=== PATIENT | female | born 1965 | race Caucasian/White ===

== ENCOUNTER → 2016-04-27 | Emergency (ER) | payer SELFPAY ==
--- NOTE | 2016-04-27 15:47 | DIAGNOSTIC IMAGING REPORT ---
PROCEDURE: XR FOOT 3 VIEWS - RIGHT INDICATION: TRAUMA/INJURY TECHNIQUE: Three views. COMPARISON: None. 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 There is no fracture or dislocation. IMPRESSION: 1. Osteoarthritis first metatarsal phalangeal joint.
--- NOTE | 2016-04-27 15:49 | DIAGNOSTIC IMAGING REPORT ---
PROCEDURE: XR KNEE 4 VIEWS - LEFT INDICATION: TRAUMA/INJURY TECHNIQUE: Four views. COMPARISON: None. FINDINGS: Osseous structures and joint spaces are normal. IMPRESSION: 1. Normal left knee.
--- NOTE | 2016-04-27 15:50 | DIAGNOSTIC IMAGING REPORT ---
PROCEDURE: XR FOREARM - RIGHT INDICATION: TRAUMA/INJURY TECHNIQUE: AP and lateral views. COMPARISON: None. FINDINGS: Osseous structures are normal. IMPRESSION: 1. Normal right forearm.
--- NOTE | 2016-04-27 15:50 | DIAGNOSTIC IMAGING REPORT ---
PROCEDURE: XR FOREARM - RIGHT INDICATION: TRAUMA/INJURY TECHNIQUE: AP and lateral views. COMPARISON: None. FINDINGS: Osseous structures are normal. IMPRESSION: 1. Normal right forearm.
--- NOTE | 2016-04-27 15:54 | ED NURSING NOTES ---
Clinical Report - Nurses [facility] [address] [place] [address] 04/27/2016 14:28 Patient: DOMENIC HOGAN TRIAGE Triage time 14:42 Apr 27 2016. Acuity: LEVEL 4. Chief Complaint: FALL while walking. 14:54 04/27/16. Alert. No acute distress. SEPSIS SCREEN: Sepsis Screen. Negative (no infection suspected/documented). ROBERT COMA SCORE: [place] Coma Scale: 15- eyes open spontaneously (4); best verbal response- oriented x 4 (5); best motor response- obeys commands (6). --14:54 Lor Mina 14:54 04/27/16. BP: 127/61. HR: 76. RR: 16. O2 saturation: 100%. Temp: 97.8 F. Pain level now 10/10. --14:54 Lor Mina. Weight: 81.6 kg stated. Height/Length: 64 inches Per Patient. BMI: 30.9. --14:42 Lor Mina. Medications Levothyroxine Sodium Oral 25 mcg, daily (doesn't take anymore, "no money"). --14:49 Lor Mina. Medication/allergy information source: the patient. --14:54 Lor Mina. Allergies Penicillin. --14:49 Lor Mina. History Arrived by private vehicle. Historian: patient. Accompanied by friend. No primary care physician. Location of injuries: neck, head, right elbow, right foot and left knee. This occurred last night. Occurred at home. ( Pt reports that she tripped when walking the dog last night. Has generalized pain, but specifies her her, side of neck, right forearm, and left knee). She has had neck pain (on the left side), extremity pain and trouble walking. Limited ROM present. No loss of consciousness. No alteration in mental status or difficulty breathing. Treatment CLOTH COLORER: None. Trauma activation: Pre-hospital notification of patient arrival was not received. PAST MEDICAL HX: Immunizations: up-to-date. SOCIAL HX: Heavy tobacco smoker- 1 pack per day. No alcohol use or drug use. NUTRITIONAL RISK ASSESSMENT: The nutritional risk assessment revealed no deficiencies. FUNCTIONAL ASSESSMENT: Functional assessment: no impairments noted. LEARNING NEEDS ASSESSMENT: The learning needs assessment revealed no barriers. FALL RISK ASSESSMENT: Fall risk assessment completed. Risk factors identified include patient history of fall. Fall interventions initiated. Side rails up x1. SKIN INTEGRITY ASSESSMENT: Skin integrity risk assessment completed. No skin integrity risk identified. --14:54 Lor Mina. PROBLEMS: Myofascial Strain. Dental Caries. Cellulitis. Impacted Cerumen. Cervical Strain. Foot Fracture. Fibula Fracture. Tetanus Status. Otitis Media. Sinusitis. Headache. Back Pain. Deaf. Immunizations. LNMP - Last Normal Menstrual Period. Staph Infections. Sciatica. Hypothyroidism. --14:46 Lor Mina. ADDITIONAL SURGERIES: Hysterectomy. Left leg surgery 2011. Nose surgey. --14:46 Lor Mina. Assessment The patient states feels the same. --14:54 Lor Mina. Interventions ID band on patient. --14:54 Lor Mina. PHYSICAL ASSESSMENT 14:55 04/27/16. To room via wheelchair. Patient gowned. GENERAL / NEURO / PSYCH: Alert. Oriented X 4. Appears in pain. HEENT: Pupils equal, round and reactive to light. Head: tenderness present. Neck: tenderness (on the left side). Head: tenderness. RESPIRATORY: Respirations not labored. Chest nontender. CVS: Pulses within normal limits. Capillary refill less than 2 seconds. GI / : Abdomen soft and nontender. EXTREMITIES: Extremities exhibit normal ROM. Limping gait. Neuro-vascular status intact to the extremity. Right elbow: superficial abrasion. Left knee: swelling and superficial abrasion. SKIN: Skin intact. Skin is warm and dry. --14:55 Lor Mina. NURSING PROGRESS NOTES 14:55 04/27/16. The plan of care for this patient has been created. Extremity elevated. Neuro-vascular extremity check. Reassurance given. Two patient identifiers checked. Call light placed in reach. Side rails up x 1. Bed placed in lowest position. Brakes of bed on. Patient ready for evaluation- chart flagged and ED physician and TAG STRINGER notified. --14:55 Lor Mina 14:57 04/27/16. ( Warm blanket provided.). --15:09 Lor Mina 15:05 04/27/2016 Hydrocodone-APAP (Hydrocodone-Acetaminophen) PO 5/325 mg Tablets 1 tab given. Allergies verified, confirmed 5 rights and sedative warning given to the patient. --15:05 Lor Mina 15:04/27/16. Care transferred and report given (Nely, RN). --15:09 Lor Mina. DISPOSITION / DISCHARGE Departure time: 16:Apr 27 2016. Condition at departure: unchanged. Learning barriers note: deaf mute. Discharge instructions provided and reviewed and the patient left prior to discharge education being provided. Reviewed medication(s) side effects, precautions, dosing and course information. Prescription(s) given to the patient. Patient verbalized understanding. Written instructions provided in Nepali. Verbalized understanding (wrote on paper no questions). The patient was discharged home and accompanied by tawanna. She left the Emergency Department ambulatory and via private vehicle. Driving ([employer] FALL RISK ASSESSMENT: Fall risk assessment completed. No fall risk identified. --16:07 Nely Garcia R.N. 16:03 04/27/16. BP: 144/69. HR: 84. O2 saturation: 100%. Pain level now: 10/10. --16:07 Nely Garcia R.N. Locked/Released at 04/27/2016 16:58 by Nely Garcia R.N.
--- NOTE | 2016-04-27 15:54 | ED ORDER SUMMARY ---
..... Patient: DOMENIC HOGAN OrderSheet [facility] VisitID: [id number] [address] [place] [address] 51y, F Registration Date/Time: 04/27/2016 ORDER SHEET Weight: 81.6 kg (stated) Allergies: Penicillin GENERAL ORDERS: Forearm Right Urgent (14:56 04/27/2016 HBivens A.R.N.P.) (Ack 14:58 KHoerner) (15:29 KHoerner) Foot 3V Right Urgent (14:56 04/27/2016 HBivens A.R.N.P.) (Ack 14:58 KHoerner) (15:29 KHoerner) Knee 4V Left Urgent (14:56 04/27/2016 HBivens A.R.N.P.) (Ack 14:58 KHoerner) (15:29 KHoerner) MEDICATION ORDERS: Hydrocodone-APAP PO 5/325 mg (NOW, HIGH ALERT MEDICATION) (14:59 04/27/2016 HBivens A.R.N.P.) (15:05 ASchmuck) IV FLUIDS: ORDER SHEET NOTES: [Electronically signed by Nely Garcia R.N. (16:58 04/27/2016)] [Electronically signed by Linda Tate A.R.N.P. (17:12 04/27/2016)] [Electronically locked/signed by Nely Garcia R.N. (16:58 04/27/2016)]
--- NOTE | 2016-04-27 15:54 | ED NURSING NOTES ---
Clinical Report - Nurses [facility] [address] [place] [address] 04/27/2016 14:28 Patient: DOMENIC HOGAN TRIAGE Triage time 14:42 Apr 27 2016. Acuity: LEVEL 4. Chief Complaint: FALL while walking. 14:54 04/27/16. Alert. No acute distress. SEPSIS SCREEN: Sepsis Screen. Negative (no infection suspected/documented). ROBERT COMA SCORE: [place] Coma Scale: 15- eyes open spontaneously (4); best verbal response- oriented x 4 (5); best motor response- obeys commands (6). --14:54 Lor Mina 14:54 04/27/16. BP: 127/61. HR: 76. RR: 16. O2 saturation: 100%. Temp: 97.8 F. Pain level now 10/10. --14:54 Lor Mina. Weight: 81.6 kg stated. Height/Length: 64 inches Per Patient. BMI: 30.9. --14:42 Lor Mina. Medications Levothyroxine Sodium Oral 25 mcg, daily (doesn't take anymore, "no money"). --14:49 Lor Mina. Medication/allergy information source: the patient. --14:54 Lor Mina. Allergies Penicillin. --14:49 Lor Mina. History Arrived by private vehicle. Historian: patient. Accompanied by friend. No primary care physician. Location of injuries: neck, head, right elbow, right foot and left knee. This occurred last night. Occurred at home. ( Pt reports that she tripped when walking the dog last night. Has generalized pain, but specifies her her, side of neck, right forearm, and left knee). She has had neck pain (on the left side), extremity pain and trouble walking. Limited ROM present. No loss of consciousness. No alteration in mental status or difficulty breathing. Treatment LIME TRIMMER: None. Trauma activation: Pre-hospital notification of patient arrival was not received. PAST MEDICAL HX: Immunizations: up-to-date. SOCIAL HX: Heavy tobacco smoker- 1 pack per day. No alcohol use or drug use. NUTRITIONAL RISK ASSESSMENT: The nutritional risk assessment revealed no deficiencies. FUNCTIONAL ASSESSMENT: Functional assessment: no impairments noted. LEARNING NEEDS ASSESSMENT: The learning needs assessment revealed no barriers. FALL RISK ASSESSMENT: Fall risk assessment completed. Risk factors identified include patient history of fall. Fall interventions initiated. Side rails up x1. SKIN INTEGRITY ASSESSMENT: Skin integrity risk assessment completed. No skin integrity risk identified. --14:54 Lor Mina. PROBLEMS: Myofascial Strain. Dental Caries. Cellulitis. Impacted Cerumen. Cervical Strain. Foot Fracture. Fibula Fracture. Tetanus Status. Otitis Media. Sinusitis. Headache. Back Pain. Deaf. Immunizations. LNMP - Last Normal Menstrual Period. Staph Infections. Sciatica. Hypothyroidism. --14:46 Lor Mina. ADDITIONAL SURGERIES: Hysterectomy. Left leg surgery 2011. Nose surgey. --14:46 Lor Mina. Assessment The patient states feels the same. --14:54 Lor Mina. Interventions ID band on patient. --14:54 Lor Mina. PHYSICAL ASSESSMENT 14:55 04/27/16. To room via wheelchair. Patient gowned. GENERAL / NEURO / PSYCH: Alert. Oriented X 4. Appears in pain. HEENT: Pupils equal, round and reactive to light. Head: tenderness present. Neck: tenderness (on the left side). Head: tenderness. RESPIRATORY: Respirations not labored. Chest nontender. CVS: Pulses within normal limits. Capillary refill less than 2 seconds. GI / : Abdomen soft and nontender. EXTREMITIES: Extremities exhibit normal ROM. Limping gait. Neuro-vascular status intact to the extremity. Right elbow: superficial abrasion. Left knee: swelling and superficial abrasion. SKIN: Skin intact. Skin is warm and dry. --14:55 Lor Mina. NURSING PROGRESS NOTES 14:55 04/27/16. The plan of care for this patient has been created. Extremity elevated. Neuro-vascular extremity check. Reassurance given. Two patient identifiers checked. Call light placed in reach. Side rails up x 1. Bed placed in lowest position. Brakes of bed on. Patient ready for evaluation- chart flagged and ED physician and CLOTH GRADER notified. --14:55 Lor Mina 14:57 04/27/16. ( Warm blanket provided.). --15:09 Lor Mina 15:05 04/27/2016 Hydrocodone-APAP (Hydrocodone-Acetaminophen) PO 5/325 mg Tablets 1 tab given. Allergies verified, confirmed 5 rights and sedative warning given to the patient. --15:05 Lor Mina 15:04/27/16. Care transferred and report given (Nely, RN). --15:09 Lor Mina. DISPOSITION / DISCHARGE Departure time: 16:Apr 27 2016. Condition at departure: unchanged. Learning barriers note: deaf mute. Discharge instructions provided and reviewed and the patient left prior to discharge education being provided. Reviewed medication(s) side effects, precautions, dosing and course information. Prescription(s) given to the patient. Patient verbalized understanding. Written instructions provided in Croatian. Verbalized understanding (wrote on paper no questions). The patient was discharged home and accompanied by tawanna. She left the Emergency Department ambulatory and via private vehicle. Driving ([employer] FALL RISK ASSESSMENT: Fall risk assessment completed. No fall risk identified. --16:07 Nely Garcia R.N. 16:03 04/27/16. BP: 144/69. HR: 84. O2 saturation: 100%. Pain level now: 10/10. --16:07 Nely Garcia R.N. Locked/Released at 04/27/2016 16:58 by Nely Garcia R.N.
--- NOTE | 2016-04-27 15:54 | ED CLINICAL REPORT ---
Clinical Report - Physicians/Mid Levels [facility] [address] [place] [address] 04/27/2016 14:28 Patient: DOMENIC HOGAN Time Seen: 14:36; upon arrival, initial patient contact, initial documentation, patient care assumed. Arrived- By private vehicle. Historian- patient. HISTORY OF PRESENT ILLNESS Chief Complaint: FALL. Location of injuries- right forearm and right foot and left knee. The injury occurred last night. Fell while walking and landed on the ground; tripped (tripped while walking the dog). Occurred at home. The patient complains of severe pain. No blow to the head, loss of consciousness or seizure. The patient complains of neck pain. Not dazed. (hurts all over). REVIEW OF SYSTEMS The patient complains of pain on weight bearing. No numbness, chest pain, difficulty breathing, weakness or abdominal pain. No laceration. All systems otherwise negative, except as recorded above. PAST HISTORY See nurses notes. PROBLEMS: Myofascial Strain. Dental Caries. Cellulitis. Impacted Cerumen. Cervical Strain. Foot Fracture. Fibula Fracture. Tetanus Status. Otitis Media. Sinusitis. Headache. Back Pain. Deaf. Immunizations. LNMP - Last Normal Menstrual Period. Staph Infections. Sciatica. Hypothyroidism. --14:46 Lor Mina. ADDITIONAL SURGERIES: Hysterectomy. Left leg surgery 2011. Nose surgey. --14:46 Lor Mina. SOCIAL HISTORY Heavy tobacco smoker. No alcohol use or drug use. No recent travel. Is a local resident. FAMILY HISTORY No significant family medical history. ADDITIONAL NOTES The nursing notes have been reviewed with agreement regarding the chief complaint, HPI, ROS, PMH and patient medications and allergies. PHYSICAL EXAM Vital Signs: 04/27/2016 14:54 BP: 127/61. HR: 76. RR: 16. O2 saturation: 100%. Temp: 97.8 F. Have been reviewed as normal and appear to be correct. Appearance: Alert. Oriented X3. No acute distress. Head: Head non-tender. No swelling of head. Eyes: Pupils equal, round and reactive to light. EOM intact. ENT: No dental injury. Pharynx normal. Neck: Painless ROM. Non-tender. CVS: Heart sounds normal. Pulses normal. Respiratory: Breath sounds normal. Chest nontender. Abdomen: No visible injury. Soft and nontender. Back: No tenderness. ROM normal. Skin: Skin intact. Skin warm and dry. Normal skin color. Normal skin turgor. Extremities: Abnormal inspection. Extremities not atraumatic. Right forearm: moderate tenderness, mild swelling and small ecchymosis located in the proximal volar aspect of forearm. Neurovascular intact distally. No erythema, laceration, abrasion, puncture wound or foreign body. No deformity. Pelvis stable. Left knee: mild tenderness and swelling and small abrasion and ecchymosis located in the patella. Limited ROM secondary to pain (diminished flexion and external and internal rotation). Neurovascular intact distally. No ligamentous laxity present. No joint effusion. No erythema, laceration, puncture wound, foreign body or deformity. Right foot: mild tenderness located in the dorsal aspect of the mid foot. Limited weight bearing secondary to pain. Neurovascular intact distally. No erythema, swelling, laceration, abrasion or ecchymosis. No puncture wound, foreign body or deformity. No lower extremity edema. Neuro: Oriented X 3. No motor deficit. No sensory deficit. LABS, X-RAYS, AND EKG X-Rays: Right forearm negative. Left knee negative. Right foot negative. Rt Forearm X-ray: (IMPRESSION: 1. Normal right forearm. Electronically Final signed by:Royer Knapp MD 04/27/2016 3:54:24 PM). The X-rays were interpreted by the radiologist and contemporaneously by me. Interpretation time: 15:50. Rt Foot X-ray: (IMPRESSION: 1. Osteoarthritis first metatarsal phalangeal joint. Electronically Final signed by:Royer Knapp MD 04/27/2016 3:51:11 PM). The X-rays were interpreted by the radiologist and contemporaneously by me. Lt Knee X-ray: (IMPRESSION: 1. Normal left knee. Electronically Final signed by:Royer Knapp MD 04/27/2016 3:52:52 PM). The X-rays were interpreted by the radiologist and contemporaneously by me. Interpretation time: 15:50. PROGRESS AND PROCEDURES Patient counseled in person regarding the patient's stable condition, test results and diagnosis. 15:51. Differential Diagnosis: Other possible considerations: fall, fx, contusions, lacs, abrasions, sprains. Above considerations are based on history, physical exam and X-Ray data. Differential diagnosis was discussed with patient. Disposition: Discharged home in good and improved condition (15:53). Condition: good and stable. CLINICAL IMPRESSION Multiple contusions with abrasion to the right forearm and left knee.No hematoma. Myofascial pain syndrome Fall on same level by tripping. INSTRUCTIONS Warnings: GENERAL WARNINGS: Return or contact your physician immediately if your condition worsens or changes unexpectedly, if not improving as expected, or if other problems arise. SPECIFICALLY, return if you develop incontinence of feces (loss of bowel control) or urine (loss of bladder control). trouble breathing, chest pain. Prescription Medications: Flexeril 10 mg: Take 1 orally every 8 hours as needed for muscle spasm. Dispense twenty (20). No refills. Substitution is permissible. Ultram 50 mg tablets: take 1-2 orally every 6 hours as needed for pain. Dispense twenty (20). No refills. Substitution is permissible. Follow-up: Follow up with your doctor in about one week as needed. Call for an appointment. Summary of care provided to patient. Understanding of the discharge instructions verbalized by patient. (Electronically signed by Linda Tate A.R.N.P. 04/27/2016 17:12)
--- NOTE | 2016-04-27 15:54 | ED ORDER SUMMARY ---
..... Patient: DOMENIC HOGAN OrderSheet [facility] VisitID: [id number] [address] [place] [address] 51y, F Registration Date/Time: 04/27/2016 ORDER SHEET Weight: 81.6 kg (stated) Allergies: Penicillin GENERAL ORDERS: Forearm Right Urgent (14:56 04/27/2016 HBivens A.R.N.P.) (Ack 14:58 KHoerner) (15:29 KHoerner) Foot 3V Right Urgent (14:56 04/27/2016 HBivens A.R.N.P.) (Ack 14:58 KHoerner) (15:29 KHoerner) Knee 4V Left Urgent (14:56 04/27/2016 HBivens A.R.N.P.) (Ack 14:58 KHoerner) (15:29 KHoerner) MEDICATION ORDERS: Hydrocodone-APAP PO 5/325 mg (NOW, HIGH ALERT MEDICATION) (14:59 04/27/2016 HBivens A.R.N.P.) (15:05 ASchmuck) IV FLUIDS: ORDER SHEET NOTES: [Electronically signed by Nely Garcia R.N. (16:58 04/27/2016)] [Electronically signed by Linda Tate A.R.N.P. (17:12 04/27/2016)] [Electronically locked/signed by Nely Garcia R.N. (16:58 04/27/2016)]
--- NOTE | 2016-04-27 17:12 | ED MED RECONCILIATION SUMMARY ---
Patient: DOMENIC HOGAN Medication Reconciliation Report [facility] VisitID: [id number] [address] [place] [address] 51y, F Registration Date/Time: 04/27/2016 Weight: 81.6 kg Height/Length: 64 in. BMI: 30.9 ALLERGIES: Penicillin The patient's Home Medications are listed below: THE FOLLOWING MEDICATIONS NEED TO BE RECONCILED: Levothyroxine Sodium Oral 25 mcg, daily, doesn't take anymore, "no money" The source(s) of the original Home Medication information: patient The following Medications were given to the patient in the Emergency Department: Hydrocodone-APAP [PO] PO 1 tab, administered: 04/27/2016 3:05:00 PM The following Medications were prescribed to the patient: Flexeril 10 mg: Take 1 orally every 8 hours as needed for muscle spasm. Dispense twenty (20). No refills. Substitution is permissible. -- Linda Tate A.R.N.P. Ultram 50 mg tablets: take 1-2 orally every 6 hours as needed for pain. Dispense twenty (20). No refills. Substitution is permissible. -- Linda Tate A.R.N.P.
--- NOTE | 2016-04-27 17:12 | ED MED RECONCILIATION SUMMARY ---
Patient: DOMENIC HOGAN Medication Reconciliation Report [facility] VisitID: [id number] [address] [place] [address] 51y, F Registration Date/Time: 04/27/2016 Weight: 81.6 kg Height/Length: 64 in. BMI: 30.9 ALLERGIES: Penicillin The patient's Home Medications are listed below: THE FOLLOWING MEDICATIONS NEED TO BE RECONCILED: Levothyroxine Sodium Oral 25 mcg, daily, doesn't take anymore, "no money" The source(s) of the original Home Medication information: patient The following Medications were given to the patient in the Emergency Department: Hydrocodone-APAP [PO] PO 1 tab, administered: 04/27/2016 3:05:00 PM The following Medications were prescribed to the patient: Flexeril 10 mg: Take 1 orally every 8 hours as needed for muscle spasm. Dispense twenty (20). No refills. Substitution is permissible. -- Linda Tate A.R.N.P. Ultram 50 mg tablets: take 1-2 orally every 6 hours as needed for pain. Dispense twenty (20). No refills. Substitution is permissible. -- Linda Tate A.R.N.P.
--- NOTE | 2016-04-27 17:12 | ED MAR SUMMARY ---
..... Medication Administration Record [address] [place] [address] Patient: DOMENIC HOGAN Visit ID: [id number] 51y, F Weight: 81.6 kg Height/Length: 64 in BMI: 30.9 ALLERGIES: Penicillin Given 15:05 04/27/2016 Lor Mina, Medication Administered: HYDROCODONE-APAP [PO] (HYDROCODONE-ACETAMINOPHEN), Dose: 1 tab 5/325 mg Tablets PO. Medication Ordered: Hydrocodone-APAP PO 5/325 mg (NOW, HIGH ALERT MEDICATION).
--- NOTE | 2016-04-27 17:12 | ED DISCHARGE INSTRUCTIONS ---
Patient: DOMENIC HOGAN General Instructions [facility] VisitID: [id number] [address] [place] [address] 51y, F Registration Date/Time: 04/27/2016 Multiple contusions with abrasion to the right forearm and left knee.No hematoma. Myofascial pain syndrome Fall on same level by tripping. INSTRUCTIONS Warnings: GENERAL WARNINGS: Return or contact your physician immediately if your condition worsens or changes unexpectedly, if not improving as expected, or if other problems arise. SPECIFICALLY, return if you develop incontinence of feces (loss of bowel control) or urine (loss of bladder control). trouble breathing, chest pain. Prescription Medications: Flexeril 10 mg: Take 1 orally every 8 hours as needed for muscle spasm. Dispense twenty (20). No refills. Substitution is permissible. Ultram 50 mg tablets: take 1-2 orally every 6 hours as needed for pain. Dispense twenty (20). No refills. Substitution is permissible. Follow-up: Follow up with your doctor in about one week as needed. Call for an appointment. Summary of care provided to patient. Understanding of the discharge instructions verbalized by patient. ADDITIONAL INFORMATION Mechanical Fall You have had a fall today. It appears that the cause is mechanical. That means that you slipped, tripped or lost your balance. If your fall had been due to fainting or a seizure, further tests would be required. Home Care: Rest today and resume your normal activities when you are feeling back to normal. If you were injured during the fall, follow the advice from your doctor regarding care of your injury. You may use acetaminophen (Tylenol) or ibuprofen (Motrin, Advil) to control pain, unless another pain medicine was prescribed. [NOTE: If you have chronic liver or kidney disease or ever had a stomach ulcer or GI bleeding, talk with your doctor before using these medicines.] Fall Prevention: Was there anything that caused your fall that can be fixed, removed, or replaced? Make your home safe by keeping walkways clear of objects you may trip over. Use non-slip pads under rugs. Do not walk in poorly lit areas. Do not stand on chairs or wobbly ladders. Use caution when reaching overhead or looking upward. This position can cause a loss of balance. Be sure your shoes fit properly, have non-slip bottoms and are in good condition. Be cautious when going up and down curbs, and walking on uneven sidewalks. If your balance is poor, consider using a cane or walker. Stay as active as you can. Balance, flexibility, strength, and endurance all come from exercise. They all play a role in preventing falls. Follow Up with your doctor or as advised by our staff. Get Prompt Medical Attention if any of the following occur: Repeated mechanical falls, or unexplained falls Dizziness, fainting or seizure Severe headache Chest pain or shortness of breath Palpitations (very rapid or very slow or irregular heartbeat) Blood in vomit, stools (black or red color) Weakness of an arm or leg or one side of the face Difficulty with speech or vision Contusion,Soft Tissue You have a CONTUSION, which is a bruise with swelling and some bleeding under the skin. There are no broken bones. This injury takes a few days to a few weeks to heal. Home Care: 1) Keep the injured part elevated to reduce pain and swelling. This is especially important during the first 48 hours. 2) Make an ice pack (ice cubes in a plastic bag, wrapped in a towel) and apply for 20 minutes every 1-2 hours the first day. Continue this 3-4 times a day until the pain and swelling goes away. 3) You may use acetaminophen (Tylenol) or ibuprofen (Motrin, Advil) to control pain, unless another pain medicine was prescribed. [ NOTE : If you have chronic liver or kidney disease or ever had a stomach ulcer or GI bleeding, talk with your doctor before using these medicines.] Follow Up with your doctor or this facility if you are not improving within the next THREE days. [NOTE: If X-rays were taken, they will be reviewed by a radiologist. You will be notified of any new findings that may affect your care.] Get Prompt Medical Attention if any of the following occur: -- Pain or swelling increases -- Injured arm or leg becomes cold, blue, numb or tingly -- Redness, warmth or drainage from the skin Contusion:Upper Extremity You have a contusion of your upper extremity (arm, wrist, hand or fingers). This causes local pain, swelling and sometimes bruising. There are no broken bones. This injury takes a few days to a few weeks to heal. A sling may be provided for comfort and arm support. Home Care: 1) Keep your arm elevated to reduce pain and swelling. This is very important during the first 48 hours. 2) Apply an ice pack (ice cubes in a plastic bag, wrapped in a towel) over the injured area for 20 minutes every 1-2 hours the first day for pain relief. Continue this 3-4 times a day until the pain and swelling goes away. 3) You may use acetaminophen (Tylenol) or ibuprofen (Motrin, Advil) to control pain, unless another pain medicine was prescribed. [ NOTE : If you have chronic liver or kidney disease or ever had a stomach ulcer or GI bleeding, talk with your doctor before using these medicines.] 4) If a sling was provided, you may remove it to shower or bathe. Do not wear it for more than one week or it may cause joint stiffness. Follow Up with your doctor or this facility if you are not starting to improve within the next THREE days. [NOTE: If X-rays were taken, they will be reviewed by a radiologist. You will be notified of any new findings that may affect your care.] Get Prompt Medical Attention if any of the following occur: -- Pain or swelling increases -- Redness, warmth or drainage -- Hand or fingers becomes cold, blue, numb or tingly Contusion:Lower Extremity You have a CONTUSION of your LOWER extremity (leg, knee, ankle, foot, or toes). This causes local pain, swelling and sometimes bruising. There are no broken bones. This injury may take from a few days to a few weeks to heal. Home Care: 1) Keep your leg elevated to reduce pain and swelling. When sleeping, place a pillow under the injured leg. When sitting, support the injured leg so it is level with your waist. This is very important during the first 48 hours. 2) If CRUTCHES have been advised, do not bear full weight on the injured leg until you can do so without pain. You may return to sports when you are able to hop and run on the injured leg without pain. 3) Apply an ice pack (ice cubes in a plastic bag, wrapped in a towel) over the injured area for 20 minutes every 1-2 hours the first day for pain relief. Continue this 3-4 times a day until the pain and swelling goes away. 4) You may use acetaminophen (Tylenol) or ibuprofen (Motrin, Advil) to control pain, unless another pain medicine was prescribed. [ NOTE : If you have chronic liver or kidney disease or ever had a stomach ulcer or GI bleeding, talk with your doctor before using these medicines.] Follow Up with your doctor or this facility if you are not starting to improve within the next THREE days. [NOTE: If X-rays were taken, they will be reviewed by a radiologist. You will be notified of any new findings that may affect your care.] Get Prompt Medical Attention if any of the following occur: -- Pain or swelling increases -- Toes become cold, blue, numb or tingly -- Redness, warmth or drainage from the skin Myofascial Pain Syndrome: Fibrositis Your pain is caused by a state of chronic muscle tension. This condition is called by various names: myofascial pain, fibrositis and trigger point pain. This can also be due to mechanical stress (such as working at a computer terminal for long periods; or work that requires repetitive motions of the arms or hands) or emotional stress (such as problems on the job or in your personal life). Sometimes there is no obvious cause. The pain can occur in the area of the muscle spasm or at a site distant to it. For example, spasm of a neck muscle can cause headache. Spasm of the muscle near the shoulder blade can cause pain shooting down the arm. Home Care: Try to identify the factors that may be causing your problem and change them: If you feel thatemotional stressis a cause of your pain, learn methods to deal more effectively with the stress in your life. These may include regular exercise, muscle relaxation techniques, meditation or simply taking time out for yourself. Consult your doctor or go to a local bookstore and review the many books and tapes available on the subject of stress reduction. If you feel that physical stress is a cause for your pain, try to modify any poor work habits. You may use acetaminophen (Tylenol) or ibuprofen (Motrin, Advil) to control pain, unless another medicine was prescribed. [NOTE: If you have chronic liver or kidney disease or ever had a stomach ulcer or GI bleeding, talk with your doctor before using these medicines.] The use of heat to the muscle (hot compress or heating pad) will be helpful to reduce muscle spasm. Some persons get relief with ice packs. Apply an ice pack (crushed or cubed ice in a plastic bag, wrapped in a towel) for 20 minutes at a time as needed. Use the method that feels best to you. Massaging the trigger point and stretching out the muscleare an important parts of prevention and treatment. Trigger point massage can be done by first applying heat to the area to warm and prepare the muscle. Have someone apply steady thumb pressure directly on the knot in the muscle (the most tender point) for 30 seconds. Release the pressure, then massage the surrounding muscle. Repeat the process, applying more pressure to the trigger point each time. Do this up to the limit of pain. With each treatment, the trigger point should become less tender and the pain should decrease. You can apply local pressure to trigger points in the back by lying on the floor with a tennis ball under the trigger point. Follow Up with your doctor as advised or if not improving within the next week. It may be necessary for you to receive physical therapy if you do not respond to home treatment alone. Get Prompt Medical Attention if any of the following occur: If your trigger point is in the chest muscles, observe for pain that becomes more severe, lasts longer, or spreads into your shoulder/arm, neck or back; you develop trouble breathing, sweating, nausea or vomiting in association with chest pain If you develop weakness or numbness in an extremity If your pain worsens, regardless of its location Cyclobenzaprine Hydrochloride Oral tablet What is this medicine? CYCLOBENZAPRINE (chelo hdz) is a muscle relaxer. It is used to treat muscle pain, spasms, and stiffness. How should I use this medicine? Take this medicine by mouth with a glass of water. Follow the directions on the prescription label. If this medicine upsets your stomach, take it with food or milk. Take your medicine at regular intervals. Do not take it more often than directed. Talk to your machine carton marker regarding the use of this medicine in children. Special care may be needed. What side effects may I notice from receiving this medicine? Side effects that you should report to your doctor or health career development consultant as soon as possible: allergic reactions like skin rash, itching or hives, swelling of the face, lips, or tongue chest pain fast heartbeat hallucinations seizures vomiting Side effects that usually do not require medical attention (report to your doctor or health career development consultant if they continue or are bothersome): headache What may interact with this medicine? Do not take this medicine with any of the following medications: cisapride droperidol flecainide grepafloxacin halofantrine levomethadyl MAOIs like Carbex, Eldepryl, Marplan, Nardil, and Parnate nilotinib pimozide probucol sertindole This medicine may also interact with the following medications: abarelix alcohol contrast dyes dolasetron guanethidine medicines for cancer medicines for depression, anxiety, or psychotic disturbances medicines to treat an irregular heartbeat medicines used for sleep or numbness during surgery or procedure methadone octreotide ondansetron palonosetron phenothiazines like chlorpromazine, mesoridazine, prochlorperazine, thioridazine some medicines for infection like alfuzosin, chloroquine, clarithromycin, levofloxacin, mefloquine, pentamidine, troleandomycin tramadol vardenafil What if I miss a dose? If you miss a dose, take it as soon as you can. If it is almost time for your next dose, take only that dose. Do not take double or extra doses. Where should I keep my medicine? Keep out of the reach of children. Store at room temperature between 15 and 30 degrees C (59 and 86 degrees F). Keep container tightly closed. Throw away any unused medicine after the expiration date. What should I tell my health care provider before I take this medicine? They need to know if you have any of these conditions: heart disease, irregular heartbeat, or previous heart attack liver disease thyroid problem an unusual or allergic reaction to cyclobenzaprine, tricyclic antidepressants, lactose, other medicines, foods, dyes, or preservatives or trying to get breast-feeding What should I watch for while using this medicine? Check with your doctor or health career development consultant if your condition does not improve within 1 to 3 weeks. You may get drowsy or dizzy when you first start taking the medicine or change doses. Do not drive, use machinery, or do anything that may be dangerous until you know how the medicine affects you. Stand or sit up slowly. Your mouth may get dry. Drinking water, chewing sugarless gum, or sucking on hard candy may help. Tramadol Hydrochloride Oral tablet What is this medicine? TRAMADOL (TRA ma dole) is a pain reliever. It is used to treat moderate to severe pain in adults. How should I use this medicine? Take this medicine by mouth with a full glass of water. Follow the directions on the prescription label. If the medicine upsets your stomach, take it with food or milk. Do not take more medicine than you are told to take. Talk to your machine carton marker regarding the use of this medicine in children. Special care may be needed. What side effects may I notice from receiving this medicine? Side effects that you should report to your doctor or health career development consultant as soon as possible: allergic reactions like skin rash, itching or hives, swelling of the face, lips, or tongue breathing difficulties, wheezing confusion itching light headedness or fainting spells redness, blistering, peeling or loosening of the skin, including inside the mouth seizures Side effects that usually do not require medical attention (report to your doctor or health career development consultant if they continue or are bothersome): constipation dizziness drowsiness headache nausea, vomiting What may interact with this medicine? Do not take this medicine with any of the following medications: MAOIs like Carbex, Eldepryl, Marplan, Nardil, and Parnate This medicine may also interact with the following medications: alcohol or medicines that contain alcohol antihistamines benzodiazepines bupropion carbamazepine or oxcarbazepine clozapine cyclobenzaprine digoxin furazolidone linezolid medicines for depression, anxiety, or psychotic disturbances medicines for migraine headache like almotriptan, eletriptan, frovatriptan, naratriptan, rizatriptan, sumatriptan, zolmitriptan medicines for pain like pentazocine, buprenorphine, butorphanol, meperidine, nalbuphine, and propoxyphene medicines for sleep muscle relaxants naltrexone phenobarbital phenothiazines like perphenazine, thioridazine, chlorpromazine, mesoridazine, fluphenazine, prochlorperazine, promazine, and trifluoperazine procarbazine warfarin What if I miss a dose? If you miss a dose, take it as soon as you can. If it is almost time for your next dose, take only that dose. Do not take double or extra doses. Where should I keep my medicine? Keep out of the reach of children. Store at room temperature between 15 and 30 degrees C (59 and 86 degrees F). Keep container tightly closed. Throw away any unused medicine after the expiration date. What should I tell my health care provider before I take this medicine? They need to know if you have any of these conditions: brain tumor depression drug abuse or addiction head injury if you frequently drink alcohol containing drinks kidney disease or trouble passing urine liver disease lung disease, asthma, or breathing problems seizures or epilepsy suicidal thoughts, plans, or attempt; a previous suicide attempt by you or a family member an unusual or allergic reaction to tramadol, codeine, other medicines, foods, dyes, or preservatives or trying to get breast-feeding What should I watch for while using this medicine? Tell your doctor or health career development consultant if your pain does not go away, if it gets worse, or if you have new or a different type of pain. You may develop tolerance to the medicine. Tolerance means that you will need a higher dose of the medicine for pain relief. Tolerance is normal and is expected if you take this medicine for a long time. Do not suddenly stop taking your medicine because you may develop a severe reaction. Your body becomes used to the medicine. This does NOT mean you are addicted. Addiction is a behavior related to getting and using a drug for a non-medical reason. If you have pain, you have a medical reason to take pain medicine. Your doctor will tell you how much medicine to take. If your doctor wants you to stop the medicine, the dose will be slowly lowered over time to avoid any side effects. You may get drowsy or dizzy. Do not drive, use machinery, or do anything that needs mental alertness until you know how this medicine affects you. Do not stand or sit up quickly, especially if you are an older patient. This reduces the risk of dizzy or fainting spells. Alcohol can increase or decrease the effects of this medicine. Avoid alcoholic drinks. You may have constipation. Try to have a bowel movement at least every 2 to 3 days. If you do not have a bowel movement for 3 days, call your doctor or health career development consultant. Your mouth may get dry. Chewing sugarless gum or sucking hard candy, and drinking plenty of water may help. Contact your doctor if the problem does not go away or is severe. You have been given the following additional information: Fall, Mechanical Contusion, Soft Tissue Contusion, Upper Extremity Contusion, Lower Extremity Myofascial Pain Syndrome Cyclobenzaprine Hydrochloride Oral tablet Tramadol Hydrochloride Oral tablet (Electronically signed by Linda Tate A.R.N.P. 04/27/2016 17:12)
--- NOTE | 2016-04-27 17:12 | ED MAR SUMMARY ---
..... Medication Administration Record [address] [place] [address] Patient: DOMENIC HOGAN Visit ID: [id number] 51y, F Weight: 81.6 kg Height/Length: 64 in BMI: 30.9 ALLERGIES: Penicillin Given 15:05 04/27/2016 Lor Mina, Medication Administered: HYDROCODONE-APAP [PO] (HYDROCODONE-ACETAMINOPHEN), Dose: 1 tab 5/325 mg Tablets PO. Medication Ordered: Hydrocodone-APAP PO 5/325 mg (NOW, HIGH ALERT MEDICATION).
== END ==
LOC: ED SRH 14:28
DX: S50.11XA Contusion of right forearm, initial encounter (principal); Z88.0 Allergy status to penicillin; S80.02XA Contusion of left knee, initial encounter; W18.30XA Fall on same level, unspecified, initial encounter; Y93.01 Activity, walking, marching and hiking; Y92.009 Unspecified place in unspecified non-institutional (private) residence as the place of occurrence of the external cause; Y99.9 Unspecified external cause status; M79.1 Myalgia; E03.9 Hypothyroidism, unspecified; Z79.899 Other long term (current) drug therapy